=== PATIENT | male | born 1950 | race Caucasian/White ===

== ENCOUNTER 2016-12-18 07:17 | Day surgery (SDC) | payer MEDICARE, OTHER ==
[~2016-12-18] VITALS: Ht 182.9 cm
[~2016-12-18 07:17] MED LIST: CYMBALTA60 MG PO; LASIX DPS40 MG PO; NOVOLIN R,100 UNITS/ SQ; NOVOLIN-N,100 UNITS/ SQ; PRAVASTATIN SOD40 MG PO; TYLENOL DPS325 MG PO; ULTRAM DPS50 MG PO
--- NOTE | 2016-12-20 08:18 | OR ---
ADMIT: 12/18/2016 RM/LOC: [facility] MR#: [id number] [address] [address] SUGEY ALBERT [address] [place] [address] Operative/Delivery Room Report SEX: M AGE: 66 : 1950 SURGERY DATE: 12/18/2016 SURGEON: Vernon Cameron MD ANESTHESIA TECHNICIAN: None. PREPROCEDURE DIAGNOSES: 1. Cervical disc degeneration. 2. Cervical postlaminectomy syndrome. 3. Cervical radiculitis. POSTPROCEDURE DIAGNOSES: 1. Cervical disc degeneration. 2. Cervical postlaminectomy syndrome. 3. Cervical radiculitis. PROCEDURE PERFORMED: Cervical epidural steroid injection C7-T1 level. INDICATIONS FOR PROCEDURE: The patient is a pleasant gentleman with severe chronic neck pain, secondary to above-mentioned diagnoses, comes here for planned cervical epidural steroid injection ANESTHESIA: Local without sedation. ESTIMATED BLOOD LOSS: Zero. COMPLICATIONS: None immediately evident. DESCRIPTION OF PROCEDURE: After the patient was seen in the preoperative area, vitals signs were taken. Prior to the procedure, the risks, benefits, and alternative therapies were discussed at length. Patient consent was obtained and updated. The patient was taken to the fluoroscopy suite and placed on the fluoroscopy table in the prone position. Pressure points were padded to comfort, monitors applied, and a timeout performed. Once adequate anesthesia of the skin over the cervical spine was achieved, the spine was prepped with ChloraPrep and draped in a sterile fashion. Under ADMIT: 12/18/2016 RM/LOC: [facility] MR#: [id number] [address] [address] SUGEY ALBERT [address] [place], [place] [id number] Operative/Delivery Room Report SEX: M AGE: 66 : 1950 fluoroscopic guidance, a 20-gauge 3.5-inch Tuohy needle was passed through the anesthetized skin to the C7-T1 epidural space using a continuous loss of resistance to saline technique. The needle placement in the epidural space was confirmed by loss of resistance to saline and then injection of 2 mL of Isovue 300, which showed a clear epidural pattern with spread of contrast as high as C2. At this time, 4 mL of solution containing 80 mg of methylprednisolone and preservative-free normal saline were injected. The patient tolerated the procedure well and was discharged to postanesthesia recovery where he continued to recover without difficulty. PLAN: Discharge instructions were given, followup scheduled. The patient was discharged home with a funeral driver. Vernon Cameron MD/ christos JOB #: [id number] CC: Vernon Cameron, Attending Physician Duke Darnell, Family Physician
[2017-02-07] MEDS ORDERED: DIMENHYDRINATE50 MG PO (11:55)
[2017-02-07] MEDS ORDERED: BACITRACIN--O.0.9 GM TP (11:55)
[2017-02-07] MEDS ORDERED: COLACE-DPS100 MG PO (11:55)
[2017-02-07] MEDS ORDERED: VALIUM-DPS5 MG PO (11:56)
[2017-04-10] MEDS ORDERED: ULTRAM DPS50 MG PO (15:10)
[2017-04-10] MEDS ORDERED: CYMBALTA60 MG PO (15:11)
[2017-04-10] MEDS ORDERED: LASIX40 MG PO (15:11)
[2017-04-10] MEDS ORDERED: PRAVACHOL20 MG PO (15:11)
[2017-04-10] MEDS ORDERED: LEVEMIR100 UNIT/1 SQ (15:11)
[2017-04-10] MEDS ORDERED: FEOSOL-DPS325 MG PO (15:11)
[2017-04-10] MEDS ORDERED: ZESTRIL DPS10 MG PO (15:12)
[2017-04-10] MEDS ORDERED: TYLENOL DPS325 MG PO (15:12)
[2017-04-10] MEDS ORDERED: NOVOLOG100 UNIT/2 SQ ×2 (15:12→15:14)
[2017-04-10] MEDS ORDERED: ASCORBIC ACID500 MG PO (15:12)
[2017-04-10] MEDS ORDERED: SENOKOT S1 TAB PO (15:14)
== END 2016-12-18 09:00 | disposition home or self-care (01) ==
LOC: SSS 07:17
PROC: 3E0S33Z Introduction of Anti-inflammatory into Epidural Space, Percutaneous Approach (ICD-10-PCS; principal; 2016-12-18)
PROC: 3E0S3BZ Introduction of Anesthetic Agent into Epidural Space, Percutaneous Approach (ICD-10-PCS; principal; 2016-12-18)
DX: G89.29 Other chronic pain (principal); M96.1 Postlaminectomy syndrome, not elsewhere classified; M50.123 Cervical disc disorder at C6-C7 level with radiculopathy; M47.816 Spondylosis without myelopathy or radiculopathy, lumbar region; E78.00 Pure hypercholesterolemia, unspecified; I10 Essential (primary) hypertension; H35.30 Unspecified macular degeneration; E66.01 Morbid (severe) obesity due to excess calories; M48.06 Spinal stenosis, lumbar region; G47.33 Obstructive sleep apnea (adult) (pediatric); M51.37 Other intervertebral disc degeneration, lumbosacral region; J90 Pleural effusion, not elsewhere classified; G62.9 Polyneuropathy, unspecified; E11.9 Type 2 diabetes mellitus without complications; Z79.899 Other long term (current) drug therapy; Z79.891 Long term (current) use of opiate analgesic

== ENCOUNTER → 2017-01-30 | Outpatient (CLI) | payer MEDICARE, OTHER ==
[~2017-01-30] MED LIST changes: +ASCORBIC ACID500 MG PO; +BACITRACIN--O.0.9 GM TP; +COLACE-DPS100 MG PO; +DIMENHYDRINATE50 MG PO; +FEOSOL-DPS325 MG PO; +LASIX40 MG PO; +LEVEMIR100 UNIT/1 SQ; +NOVOLOG100 UNIT/2 SQ; +PRAVACHOL20 MG PO; +SENOKOT S1 TAB PO; +VALIUM-DPS5 MG PO; +ZESTRIL DPS10 MG PO
== END | disposition home or self-care (01) ==
LOC: PTH.S 10:21
DX: Z01.818 Encounter for other preprocedural examination (principal); E11.9 Type 2 diabetes mellitus without complications

== ENCOUNTER 2017-02-05 05:39 | Inpatient (IN) | payer MEDICARE, OTHER ==
[~2017-02-05 05:39] MED LIST changes: -ASCORBIC ACID500 MG PO; -BACITRACIN--O.0.9 GM TP; -COLACE-DPS100 MG PO; -DIMENHYDRINATE50 MG PO; -FEOSOL-DPS325 MG PO; -LASIX40 MG PO; -LEVEMIR100 UNIT/1 SQ; -NOVOLOG100 UNIT/2 SQ; -PRAVACHOL20 MG PO; -SENOKOT S1 TAB PO; -VALIUM-DPS5 MG PO; -ZESTRIL DPS10 MG PO
[2017-02-07] MEDS ORDERED: COLACE-DPS100 MG PO (11:55)
[2017-02-07] MEDS ORDERED: BACITRACIN--O.0.9 GM TP (11:55)
[2017-02-07] MEDS ORDERED: DIMENHYDRINATE50 MG PO (11:55)
[2017-02-07] MEDS ORDERED: VALIUM-DPS5 MG PO (11:56)
[2017-04-10] MEDS ORDERED: ULTRAM DPS50 MG PO (15:10)
[2017-04-10] MEDS ORDERED: LASIX40 MG PO (15:11)
[2017-04-10] MEDS ORDERED: FEOSOL-DPS325 MG PO (15:11)
[2017-04-10] MEDS ORDERED: LEVEMIR100 UNIT/1 SQ (15:11)
[2017-04-10] MEDS ORDERED: CYMBALTA60 MG PO (15:11)
[2017-04-10] MEDS ORDERED: PRAVACHOL20 MG PO (15:11)
[2017-04-10] MEDS ORDERED: NOVOLOG100 UNIT/2 SQ ×2 (15:12→15:14)
[2017-04-10] MEDS ORDERED: ASCORBIC ACID500 MG PO (15:12)
[2017-04-10] MEDS ORDERED: ZESTRIL DPS10 MG PO (15:12)
[2017-04-10] MEDS ORDERED: TYLENOL DPS325 MG PO (15:12)
[2017-04-10] MEDS ORDERED: SENOKOT S1 TAB PO (15:14)
== END 2017-02-06 11:41 | disposition home or self-care (01) | DRG 472 ==
DX: M50.123 Cervical disc disorder at C6-C7 level with radiculopathy (principal); Z68.41 Body mass index [BMI] 40.0-44.9, adult; I27.81 Cor pulmonale (chronic); E66.01 Morbid (severe) obesity due to excess calories; G62.9 Polyneuropathy, unspecified; M47.816 Spondylosis without myelopathy or radiculopathy, lumbar region; E78.00 Pure hypercholesterolemia, unspecified; I10 Essential (primary) hypertension; H35.30 Unspecified macular degeneration; G47.33 Obstructive sleep apnea (adult) (pediatric); E11.9 Type 2 diabetes mellitus without complications; Z79.4 Long term (current) use of insulin

== ENCOUNTER 2017-03-31 05:42 | Inpatient (IN) | payer MEDICARE, OTHER ==
[~2017-03-31] VITALS: Ht 182.9 cm; Wt 115.0 kg
[~2017-03-31 05:42] MED LIST changes: +BACITRACIN--O.0.9 GM TP; +COLACE-DPS100 MG PO; +DIMENHYDRINATE50 MG PO; +VALIUM-DPS5 MG PO
--- NOTE | 2017-04-04 08:28 | OR ---
ADMIT: 03/31/2017 RM/LOC: 526 [facility] MR#: [id number] [address] [address] SUGEY ALBERT Amauri [address] [place] [address] Operative/Delivery Room Report SEX: M AGE: 66 : 1950 Corrected: 04/01/2017 0915 djs SURGERY DATE: 03/31/2017 SURGEON: Lang Ballard MD PREOPERATIVE DIAGNOSIS: Neurogenic claudication from neurological impingement from foraminal and lateral recess stenosis at lumbar 3-4, 4-5, and lumbar 5- sacral 1. POSTOPERATIVE DIAGNOSIS: Neurogenic claudication from neurological impingement from foraminal and lateral recess stenosis at lumbar 3-4, 4-5, and lumbar 5-sacral 1. PROCEDURE: Lumbar laminectomy with undercutting of the facets where necessary for decompression of the lateral recesses, lumbar 3-4, 4-5, and lumbar 5- sacral 1 with intraoperative fluoroscopy physician interpretation of film. INFORMATION TECHNOLOGY DATA ANALYST: Ifrah Gomez APRN PROCEDURE IN DETAIL: After gaining informed consent, the patient was taken to the operative theater, placed under general endotracheal anesthesia in supine position, turned prone on a Brian table with all pressure points purposely padded prior to performing the procedure. He was prepped and draped in usual sterile fashion. A time-out was utilized to ascertain the correct site and side of surgery as well as other pertinent patient historical information. Counts were obtained at the beginning and end of the case with no change betwixt the two. Antibiotics were given before 1 hour of incision. Fluoroscope was brought into the field and the L3-4 and L5-S1 levels were marked with needles. Incision was then fashioned. This was then taken down to the thoracodorsal fascia, which was incised and then a subperiosteal dissection was utilized down the paraspinous musculature, lumbar 3-4, lumbar 4- 5, lumbar 5-sacral 1, placing self-retaining retractors. Fluoroscopy was then utilized again to evaluate this area. Once this was completed, attention was turned to laminectomy. Various curettes, rongeurs, and a high-speed drill was used to resect the spinous prostheses and lamina taking this out widely undercutting the medial facets where necessary and obstructed at lumbar 3-4, lumbar 4-5, lumbar 5- sacral 1, resecting ligamentum flavum and undercutting underneath the facets to resect as much of the ligamentum flavum out towards the neuroforamen as was possible. Once this was completed, I was able to take the dental instrument and sound into the neural foramen 3-4, 4-5 and 5-sacral 1 bilaterally with no sign of further compressive etiology. No palpable stenotic areas. Once this was completed, pristine hemostasis was obtained. Attention was turned to closure. The BERTHA drain was daylighted out. The wound was closed with simple interrupted 0 Vicryl in the thoracodorsal fascia, simple inverted interrupted 2-0 Vicryl in the hypodermic tissue and subcuticular 3-0 Stratafix on the ADMIT: 03/31/2017 RM/LOC: 526 [facility] MR#: [id number] [address] [place] [address] [place] [address] Operative/Delivery Room Report SEX: M AGE: 66 : 1950 skin. Stab incisions were fashioned in the paraspinous musculature and the ropivacaine catheter was then passed down, loaded with 5 mL of 0.5% Marcaine and connected to the ON-Q pain ball. Ms. Gomez assisted with suction, retraction, and closure at the end of the case. COMPLICATIONS: None. ESTIMATED BLOOD LOSS: Charted. SPECIMEN: None. DISPOSITION: Extubated and taken to postanesthesia care unit. Lang Ballard MD/ christos JOB #: [id number] CC: Lang Ballard, Attending Physician Duke Darnell, [facility] Physician Corrected: 04/01/2017 0915 benito
[2017-04-10] MEDS ORDERED: ULTRAM DPS50 MG PO (15:10)
[2017-04-10] MEDS ORDERED: CYMBALTA60 MG PO (15:11)
[2017-04-10] MEDS ORDERED: LASIX40 MG PO (15:11)
[2017-04-10] MEDS ORDERED: PRAVACHOL20 MG PO (15:11)
[2017-04-10] MEDS ORDERED: FEOSOL-DPS325 MG PO (15:11)
[2017-04-10] MEDS ORDERED: LEVEMIR100 UNIT/1 SQ (15:11)
[2017-04-10] MEDS ORDERED: NOVOLOG100 UNIT/2 SQ ×2 (15:12→15:14)
[2017-04-10] MEDS ORDERED: ZESTRIL DPS10 MG PO (15:12)
[2017-04-10] MEDS ORDERED: ASCORBIC ACID500 MG PO (15:12)
[2017-04-10] MEDS ORDERED: TYLENOL DPS325 MG PO (15:12)
[2017-04-10] MEDS ORDERED: SENOKOT S1 TAB PO (15:14)
--- NOTE | 2017-04-23 12:15 | DS ---
ADMIT: 03/31/2017 RM/LOC: 526 [facility] MR#: [id number] [facility]#: [id number] [address] [address] SUGEY ALBERT [address] [place] [address] General Discharge Summary SEX: M AGE: 66 : 1950 ADMISSION DATE: 03/31/2017 DISCHARGE DATE: 04/02/2017 SERVICE: Neurosurgery. REASON FOR ADMISSION: 1. Low back pain. 2. Neurogenic claudication. 3. Lumbar spinal stenosis. PROCEDURE: Lumbar 3 through sacral 1 laminectomy. HOSPITAL COURSE: Mr. Albert tolerated this procedure well. Postoperatively, he was taken to the Med/Surg floor for monitoring and care. He was evaluated by Physical Therapy and Occupational Therapy and tolerated this quite well. Postop day #2, he was awake and alert. He was afebrile. His vital signs were stable. He was moving all extremities x4. His incision was clean, dry, and intact. His BERTHA drain was patent with serosanguineous drainage. His On-Q was patent. His pain was controlled. He was a little hypoglycemic, but his blood sugar came up nicely. Postop day #2, he was awake and alert. He was afebrile. His vital signs were stable. He was moving all extremities x4 with 5/5 strength. His incision was clean, dry, and intact. His On-Q was patent and was discontinued without difficulty. His BERTHA drain was patent with a small amount of serosanguineous drainage and was discontinued without difficulty. Two Monocryl stitches were applied to the site, and he tolerated this quite well. He was evaluated by the inpatient rehabilitation unit and deemed to be appropriate candidate for their inpatient rehabilitation with the plan to return to his prior function of living status. On the day of discharge, he was deemed medically fit for transfer to the inpatient rehabilitation unit. DISCHARGE CONDITION: Good. MEDICATIONS: 1. Colace 100 mg p.o. b.i.d. 2. Milk of magnesia 10 mL p.o. q.a.m. 3. Senokot 1 tab p.o. b.i.d. 4. Zestril 20 mg p.o. daily. 5. Dulcolax 10 mg suppository 1 rectally q.a.m. 6. NovoLog sliding scale insulin before meals and at bedtime low-dose blood sugar 131 to 180, give 2 units; 181 to 240, give 4 units; 241 to 300, give 6 units; 301 to 350, give 8 units; 351 to 400, give 10 units; over 400, give 12 units and call the doctor. 7. Bacitracin ointment to the incision q.p.m. 8. Colace 100 mg p.o. b.i.d. p.r.n. 9. Glutose 37.5 to 75 g p.o. p.r.n. 10.Hydrocodone 5/325, 1 to 2 p.o. q.4 hours p.r.n. 11.Maalox 30 mL p.o. q.6 hours p.r.n. 12.Tylenol 650 mg p.o. q.4 hours p.r.n. 13.Valium 5 mg 1 to 2 tablets p.o. q.8 hours p.r.n. ADMIT: 03/31/2017 RM/LOC: 526 [facility] MR#: [id number] [address] [address] SUGEY ALBERT [address] [place] [address] General Discharge Summary SEX: M AGE: 66 : 1950 14.Zofran 4 mg p.o. q.6 hours p.r.n. 15.Tramadol 50 mg q.6 hours p.r.n. 16.Pravastatin 40 mg daily. 17.Duloxetine 60 mg daily. 18.Furosemide 40 mg daily. 19.Dimenhydrinate 100 mg daily. 20.Humulin N 70 units b.i.d. 21.Humulin R 30 units t.i.d. before meals. DISCHARGE INSTRUCTIONS: Per Dr. Ballard. He can have a diabetic diet. He may shower, he should not take any tub baths, he should pat his incision dry. He should not lift anything greater than 15 pounds. He should continue with Physical Therapy and Occupational Therapy. He will call with any questions or concerns including neurological worsening, signs or symptoms of infection, or any other issues. FOLLOWUP: He will follow up with Ifrah in clinic in 2 weeks. DISPOSITION: He was discharged to the inpatient rehabilitation unit. Total [id number] time for the discharge planning and care coordination was 30 minutes. Ifrah Gomez APRN / Lang Ballard MD / christos JOB #: [id number] CC: Lang Ballard MD, Attending Physician Duke Darnell MD, Family Physician
== END 2017-04-02 15:10 | disposition short-term general hospital (02) | DRG 516 ==
LOC: SSS 05:42 → 5MS 08:49 → SSS 15:04 → 5MS 04-02 15:10
PROVIDERS: ADMIT Neurological Surgery
PROC: 01NB0ZZ Release Lumbar Nerve, Open Approach (ICD-10-PCS; principal; 2017-03-31)
DX: M47.816 Spondylosis without myelopathy or radiculopathy, lumbar region (principal); Z68.41 Body mass index [BMI] 40.0-44.9, adult; E11.42 Type 2 diabetes mellitus with diabetic polyneuropathy; I27.81 Cor pulmonale (chronic); E11.649 Type 2 diabetes mellitus with hypoglycemia without coma; E66.01 Morbid (severe) obesity due to excess calories; M51.37 Other intervertebral disc degeneration, lumbosacral region; E78.00 Pure hypercholesterolemia, unspecified; I10 Essential (primary) hypertension; F32.9 Major depressive disorder, single episode, unspecified; H35.30 Unspecified macular degeneration; G47.33 Obstructive sleep apnea (adult) (pediatric); Z98.1 Arthrodesis status; Z79.4 Long term (current) use of insulin

== ENCOUNTER 2017-04-02 12:00 | Inpatient (IN) | payer MEDICARE, OTHER ==
[~2017-04-02] VITALS: Ht 182.9 cm; Wt 134.9 kg
--- NOTE | 2017-04-04 08:57 | CO ---
ADMIT: 04/02/2017 RM/LOC: 604 [facility] MR#: [id number] [address] [address] [place] [address] Consultation SEX: M AGE: 66 : 1950 DATE OF CONSULTATION: 04/03/2017 ATTENDING PHYSICIAN: Zeke Jon CONSULTING PHYSICIAN: Erwin Garcia MD CHIEF COMPLAINT AND HISTORY OF PRESENT ILLNESS: Mr. Albert is admitted to the IRU on April 02, recovering from a lumbar laminectomy performed on March [address] Lang Ballard, L3 through S1. So far, satisfactory recovery. We have been asked to see him for medical management, specifically to address diabetes and blood pressure issues. History provided by the patient is, he has had diabetes for about 11 years. His primary is Dr. Darnell in [place] and his last hemoglobin A1c was 6.8% about a month ago. He has been on same regimen for several years and his sugars for the most part have been controlled. He has some numbness of his feet, so probably some diabetic neuropathy with it. He has also had hypertension for many years and is on medication and to his knowledge it has been well maintained. PAST MEDICAL HISTORY: Type 2 diabetes, hypertension, obstructive sleep apnea, obesity, dyslipidemia, lumbar degenerative disk disease, and spinal stenosis. 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 FAMILY HISTORY: Positive for diabetes in first-degree relatives. SOCIAL HISTORY: He is retired and , lives at home with his . He does not smoke and does not drink. MEDICATIONS: Prior to admission takin. Humulin N 70 units b.i.d. 2. Humulin R 30 units t.i.d. 3. Tramadol p.r.n. for pain. 4. Duloxetine 60 mg daily. 5. Pravastatin 40 mg daily. 6. Furosemide 40 mg daily. 7. Currently on Zestril as well 20 mg daily. 8. Also there are other "p.r.n. medications" for management of pain, constipation, and the like. ALLERGIES AND INTOLERANCE: Possibly oxycodone is an adverse reaction. REVIEW OF SYSTEMS: Denies chest pain, shortness of breath, or abdominal symptoms at this time. He of course has the postoperative back pain, has numbness of his feet. No ear, nose, or throat complaints. No systemic complaints such as chills or fever. PHYSICAL EXAMINATION: GENERAL: He is alert and oriented. No acute distress. ADMIT: 04/02/2017 RM/LOC: 604 [facility] MR#: [id number] [address] [place] [place] [address] [place] [address] Consultation SEX: M AGE: 66 : 1950 Overweight male. VITAL SIGNS: Most recent temp 100.1, pulse 84, respirations 20, BP 119/58, and O2 saturation 97% on room air. This was taken at 1935 hours on April 02. He has been wearing 2 L overnight. HEENT: Teeth are in good repair. Oral mucous membranes are moist. Hearing is normal. There is no nasal discharge. EYES: Pupils are equal and reactive to light. Sclerae are nonicteric. NECK: No masses or tenderness or bruits. HEART: Rhythm is regular but there is an occasional premature beat. Rate is normal. LUNGS: Clear to auscultation throughout. BACK: Surgical incision in lower back appears well-approximated. No signs of infection. ABDOMEN: Nontender. No masses. GENITALIA: Not examined. EXTREMITIES: Upper extremities grossly normal. Lower extremities, he has amputation of his right great toe. He has numbness of his feet. He has some arthritic changes of his knees. He has minimal swelling in his lower legs. PSYCH: He is calm, alert, and oriented. IMPRESSION: 1. Postoperative lumbar laminectomy for lumbar degenerative disk disease. 2. Well controlled type 2 diabetes by history with diabetic neuropathy. 3. Controlled hypertension. 4. Obstructive sleep apnea. 5. Obesity. 6. Dyslipidemia. PLANS: We will follow him for his general medical needs. I see no need to change his diabetic regimen at this time or his antihypertensive regimen. He has not been using his CPAP in the hospital, so we will get that initiated and we will follow for any other changes needed. Anticipate most of the orders will be by the rehab team. Erwin Garcia MD/ christos JOB #: [id number] CC: Zeke Jon, Attending Physician Duke Darnell, Family Physician
[2017-04-10] MEDS ORDERED: ULTRAM DPS50 MG PO (15:10)
[2017-04-10] MEDS ORDERED: PRAVACHOL20 MG PO (15:11)
[2017-04-10] MEDS ORDERED: CYMBALTA60 MG PO (15:11)
[2017-04-10] MEDS ORDERED: LASIX40 MG PO (15:11)
[2017-04-10] MEDS ORDERED: FEOSOL-DPS325 MG PO (15:11)
[2017-04-10] MEDS ORDERED: LEVEMIR100 UNIT/1 SQ (15:11)
[2017-04-10] MEDS ORDERED: ZESTRIL DPS10 MG PO (15:12)
[2017-04-10] MEDS ORDERED: TYLENOL DPS325 MG PO (15:12)
[2017-04-10] MEDS ORDERED: NOVOLOG100 UNIT/2 SQ ×2 (15:12→15:14)
[2017-04-10] MEDS ORDERED: ASCORBIC ACID500 MG PO (15:12)
[2017-04-10] MEDS ORDERED: SENOKOT S1 TAB PO (15:14)
--- NOTE | 2017-04-30 14:36 | DS ---
ADMIT: 04/02/2017 RM/LOC: 604 [facility] MR#: [id number] [address] [address] SUGEY ALBERT Ama[address] [place] [address] General Discharge Summary SEX: M AGE: 66 : 1950 ADMISSION DATE: 04/02/2017 DISCHARGE DATE: 04/09/2017 DISCHARGE DIAGNOSIS: Orthopedic disorder 08.9, other orthopedic, M48.07 spinal stenosis lumbosacral region, onset 03/31/2017, specifically L3-S1 spondylosis stenosis with neurogenic claudication status post L3-S1 laminectomy. Comorbid conditions per initial H and P. Other diagnosis per hospital course below. HOSPITAL COURSE: Please see my initial H and P for details prior to transfer the IRU. Q.a.c. and q.h.s. blood sugars and NovoLog sliding scale insulin. Lovenox started for DVT prophylaxis. Pain and bowel regimen adjusted. PVRs obtained. Antivert p.r.n. nausea, dizziness, and lightheadedness. Hydrocodone and Valium discontinued. Started OxyIR for pain. Tramadol used first for pain and then OxyIR second. Lab was monitored regularly. [facility] consulted for medical management. OxyIR adjusted for pain. Hyperglycemic orders initiated. CPAP as at home for obstructive sleep apnea. Lovenox discontinued as he was ambulating good enough distance to prevent DVT. Feosol and vitamin C for iron deficiency with anemia. EzPAP b.i.d. for atelectasis. Encouraged incentive spirometry. O2 titrated to discontinuation for hypoxemia. Milk of magnesia discontinued. Gave extra Senokot-S for constipation as well as suppository and warm water enema as needed. Zestril changed to 10 mg b.i.d. for hypertension that was worse in the morning. Novolin N insulin decreased for hypoglycemia. PVR normal 86. Titrated O2 off to keep sats greater than 89%. Discontinued OxyIR for pain, no longer necessary. Novolin decreased for hypoglycemia. All insulin orders discontinued. Started on Levemir 40 units at bedtime. NovoLog 15 units with each meal. Correction insulin NovoLog low-dose. Diabetic education ordered. Dietitian followed to optimize nutrition. Pharmacy followed to optimize medication management. The patient was medically stable at the time of discharge. Please see IRU interdisciplinary discharge summary for details regarding progress in therapy. DISCHARGE DISPOSITION: Home with . Had all equipment needed for home including single-point cane. Preferred to go home with home exercises even through outpatient services recommended. Will follow up with adult secondary education instructor outpatient. provided transport home. DISCHARGE MEDICATIONS: Please see discharge med rec. FOLLOWUP: Dr. Darnell. Zeke Jon MD/ christos JOB #: [id number] ADMIT: 04/02/2017 RM/LOC: 604 [facility] MR#: [id number] [address] [address] SUGEY ALBERT [address] [place] [address] General Discharge Summary SEX: M AGE: 66 : 1950 CC:
--- NOTE | 2017-06-04 12:32 | DS ---
ADMIT: 04/02/2017 RM/LOC: 604 [facility] MR#: [id number] [address] [address] ROOSEVELTSUGEY CORONA [address] [place] [address] General Discharge Summary SEX: M AGE: 66 : 1950 CORRECTED: 04/11/2017 1052 [facility] ADMISSION DATE: 04/02/2017 DISCHARGE DATE: 04/09/2017 DIAGNOSES: 1. Low back pain. a. Spondylosis and stenosis from L3-S1. b. Status post lumbar laminectomy on 03/31/2017. 2. Status post cervical radiculitis due to spondylosis status post C7-T1 epidural steroid injection and C6-C7 anterior cervical discectomy and fusion on 02/05/2017. 3. Status post right shoulder surgery due to chronic pain. 4. Status post colonoscopy. 5. Diabetes mellitus type 2. 6. Morbid obesity. REASON FOR ADMISSION: The patient was admitted in the rehab center on 04/02/2017, post undergoing surgery on the acute side by neurosurgeon Dr. Ballard consisting of lumbar laminectomy from L3-S1. His postoperative course was uneventful except he had low blood sugars. After his acute phase of management for post surgery, he was transferred to the rehab to achieve functional independence. At the time of his initial entry to the rehab center, the patient was dependent in activities of daily living, especially in the lower body walking and required rehabilitation of his bowel and bladder. FAMILY HISTORY: Diabetes and colon cancer. SOCIAL HISTORY: Nonsmoker. Retired. and lives with his . Prior to surgery, the patient was independent in ADL and self care. PHYSICAL EXAMINATION: VITAL SIGNS: On initial physical examination, the patient was afebrile to 96.8, his blood pressure 116/61, heart rate was 91 per minute. GENERAL: He was awake and alert, but somnolent. He could sit in the recliner. EXTREMITIES: He had trace of edema without any calf tenderness. Pulses were felt. Temperature of the extremities were normal. There was no lymphadenopathy. BACK: He had healing surgical scar. Strength in the lower extremities was 4/5. His sensation was impaired in stocking and glove distribution. Deep tendon reflexes 0 to 1. Babinski was negative. Cognition, he was oriented to person, place, and time. He had a flat affect with no anxiety or agitation. HOSPITAL COURSE: The patient underwent interdisciplinary program in the hospital which included medical management consisting of monitoring his blood sugar and vital signs. He had an episode of hypoglycemia. Dr. Darnell and group was re-consulted. His dose of Novolin insulin was diminished. At the time of discharge, his blood sugars were under control, but slightly on the ADMIT: 04/02/2017 RM/LOC: 604 [facility] MR#: [id number] [address] [place] [id number] SUGEY ALBERT [address] [place] [address] General Discharge Summary SEX: M AGE: 66 : 1950 higher side. He was seen in consultation by diabetic nurse and was advised on the diet and control in the hospital as well as in the home environment. He was able to participate in physical and occupational therapy. He received 1.5 hours of physical and occupational therapy daily. He made significant progression. At the time of discharge, he was able to ambulate with single cane without any assistance. He achieved independence in ADL and self care. He was instructed on abdominal muscle strengthening program and appropriate body mechanics, especially for back-sparing ADL. During his stay, he did not complain of significant cervical pain where he had surgery consisting of ACDF at C6 and C7 level. He had no radicular symptoms. He remained continent of bowel and bladder. He was initially constipated, which was relieved after taking Senokot. At the time of discharge, the patient did not have significant low back pain. It should be noted, the patient had amputation of the right first toe, but no infection. He has a second toe deformity. He had tendency not to have heel-to-toe gait due to this deformity. He was instructed on appropriate exercises. His skin was intact. CONDITION ON DISCHARGE: Improved and independent. DISCHARGE MEDICATIONS: 1. Cymbalta 60 mg p.o. 1 daily. 2. Feosol 325 mg 1 at bedtime. 3. Lasix 40 mg p.o. daily. 4. Pravachol 40 mg p.o. daily. 5. Levemir 100 units subcutaneous, 40 units daily. 6. NovoLog 100 units/mL, 15 units to be taken on a sliding scale [place] levels of the blood sugar. 7. Senokot 1 tablet daily p.r.n. 8. Tylenol 325 mg p.o. 4 times a day. 9. Ultram 50 mg 1 q.8 hourly p.r.n. 10.We discontinued Zofran. FOLLOWUP: The patient to follow with Dr. Ballard, neurosurgeon and by Dr. Darnell for his management of diabetes mellitus. Melania Issa MD/ josephl JOB #: [id number] CC: Zeke Jon MD, Attending Physician Duke Darnell MD, Family Physician CORRECTED: 04/11/2017 1052 [facility]
== END 2017-04-09 16:35 | disposition home or self-care (01) | DRG 560 ==
LOC: 6IRU 15:11
PROVIDERS: ADMIT Physical Medicine & Rehabilitation
PROC: F07Z9ZZ Gait Training/Functional Ambulation Treatment (ICD-10-PCS; principal; 2017-04-02)
PROC: F08Z1FZ Dressing Techniques Treatment using Assistive, Adaptive, Supportive or Protective Equipment (ICD-10-PCS; principal; 2017-04-02)
PROC: F08Z2FZ Grooming/Personal Hygiene Treatment using Assistive, Adaptive, Supportive or Protective Equipment (ICD-10-PCS; principal; 2017-04-02)
DX: Z47.89 Encounter for other orthopedic aftercare (principal); D62 Acute posthemorrhagic anemia; E11.42 Type 2 diabetes mellitus with diabetic polyneuropathy; E11.649 Type 2 diabetes mellitus with hypoglycemia without coma; Z68.41 Body mass index [BMI] 40.0-44.9, adult; G89.18 Other acute postprocedural pain; G47.33 Obstructive sleep apnea (adult) (pediatric); M54.5 Low back pain; M54.2 Cervicalgia; G89.4 Chronic pain syndrome; D50.9 Iron deficiency anemia, unspecified; R09.02 Hypoxemia; I10 Essential (primary) hypertension; E78.5 Hyperlipidemia, unspecified; K59.00 Constipation, unspecified; E66.9 Obesity, unspecified; Z83.3 Family history of diabetes mellitus; Z79.4 Long term (current) use of insulin